=== PATIENT | male | born 1995 | race Caucasian/White ===

== ENCOUNTER 2019-02-15 17:21 | Emergency (ER) | payer SELFPAY ==
[2019-02-15] MEDS ORDERED: Fluorescein Opthalmic Strip ONE (17:38)
[2019-02-15] MEDS ORDERED: Proparacaine 0.5% Opth 15 ML BOT ONE (17:38)
== END 2019-02-15 18:24 | disposition home or self-care (01) ==
LOC: ERS 17:21
DX: H10.9 Unspecified conjunctivitis (principal); F41.9 Anxiety disorder, unspecified; F31.9 Bipolar disorder, unspecified; F17.210 Nicotine dependence, cigarettes, uncomplicated; Z71.6 Tobacco abuse counseling
CPT/HCPCS: 99406

== ENCOUNTER 2019-02-23 14:00 | Emergency (ER) | payer SELFPAY ==
[2019-02-23] MEDS ORDERED: Proparacaine 0.5% Opth 15 ML BOT ONE (14:39)
[2019-02-23] MEDS ORDERED: Fluorescein Opthalmic Strip ONE (14:39)
== END 2019-02-23 14:54 | disposition home or self-care (01) ==
LOC: ERS 14:00
DX: H10.9 Unspecified conjunctivitis (principal); F41.9 Anxiety disorder, unspecified; F31.9 Bipolar disorder, unspecified; F17.210 Nicotine dependence, cigarettes, uncomplicated
CPT/HCPCS: 99283

== ENCOUNTER 2019-03-01 20:31 | Emergency (ER) | payer SELFPAY ==
--- NOTE | 2019-03-01 21:19 | RAD ---
RIGHT ANKLE 3 VIEWS: Date: 03/01/19 HISTORY: Pain and swelling following an injury. FINDINGS: Prominent anterior and lateral soft tissue swelling, Displaced transverse fracture of the distal fibu la. The ankle mortise appears to be maintained. IMPRESSION: Minimally displaced transverse fracture of the distal fibula with prominent soft tissue swelling. POS: RRE
[2019-03-01] MEDS ORDERED: Ketorolac Tromethamine 30 MG/ML VIAL ONE (21:50)
== END 2019-03-01 22:17 | disposition home or self-care (01) ==
LOC: ERS 20:31
DX: S82.831A Other fracture of upper and lower end of right fibula, initial encounter for closed fracture (principal); F31.9 Bipolar disorder, unspecified; F41.9 Anxiety disorder, unspecified; F17.210 Nicotine dependence, cigarettes, uncomplicated; W01.198A Fall on same level from slipping, tripping and stumbling with subsequent striking against other object, initial encounter
CPT/HCPCS: 29515; 96372; J1885

== ENCOUNTER 2019-04-03 18:01 | Emergency (ER) | payer SELFPAY | END 2019-04-03 19:15 | disposition home or self-care (01) | LOC: ERS 18:01 | DX: S82.891D Other fracture of right lower leg, subsequent encounter for closed fracture with routine healing (principal); F31.9 Bipolar disorder, unspecified; F41.9 Anxiety disorder, unspecified; F17.210 Nicotine dependence, cigarettes, uncomplicated | CPT/HCPCS: 99282 ==

== ENCOUNTER 2020-09-17 18:23 | Emergency (ER) | payer SELFPAY ==
[~2020-09-17 18:23] MED LIST: Iopamidol-370 76% 500 ML 1 ML ONE
--- NOTE | 2020-09-17 21:05 | CT ---
EXAM: CT neck with contrast HISTORY: Right-sided facial swelling and jaw pain COMPARISON: None TECHNIQUE: Multiple contiguous axial images were obtained and a CT of the neck with contrast. Sagitta l and coronal reformats were performed. FINDINGS: Numerous dental caries are seen. There is mild right facial soft tissue swelling. Adjacent to the rig ht mandible near the posterior most molar, there is a 1.2 cm fluid collection with rim enhancement. This likely represents an odontogenic abscess. No mucosal abnormality is seen in the nasopharynx, oropharynx, hypopharynx, or subglottic regions. The parapharyngeal spaces are symmetric. No cervical adenopathy is seen. The salivary glands are symmetric without focal abnormality. The thyroid is unremarkable. No osseous abnormality is seen in the cervical spine. The visualized intracranial structures are unremarkable. The lung apices are unremarkable. Soft tissu e density in the anterior mediastinum likely represents a small amount residual thymus. IMPRESSION: Small odontogenic abscess along the right mandible.
== END 2020-09-17 21:51 | disposition home or self-care (01) ==
LOC: ERS 18:23
DX: M27.2 Inflammatory conditions of jaws (principal); F17.210 Nicotine dependence, cigarettes, uncomplicated
CPT/HCPCS: 70491; Q9967